=== PATIENT | male | born 1970 | race Caucasian/White ===

== ENCOUNTER 2023-11-23 09:08 | Outpatient (CLI) | payer OTHER ==
[2023-11-23] MEDS ORDERED: Iopamidol 300 61% 100 ML VIAL FS ONE (10:02)
== END 2023-11-23 09:09 | disposition home or self-care (01) ==
LOC: CSHCT 09:08
PROVIDERS: ATTEND Otolaryngology Otolaryngic Allergy
DX: D49.0 Neoplasm of unspecified behavior of digestive system (principal); R59.0 Localized enlarged lymph nodes; M89.9 Disorder of bone, unspecified
CPT/HCPCS: 70491; 71260